=== PATIENT | female | born 1990 | race Hispanic/Latino ===

== ENCOUNTER 2021-04-18 08:21 | Emergency (ER) | payer OTHER ==
[2021-04-18] MEDS ORDERED: ACETAMINOPHEN 500 MG TAB ONE (09:23)
--- NOTE | 2021-04-18 10:26 | ER ---
Nurse's Notes [facility] Name: Laureen Castillo Age: 30 yrs Sex: Female : 1990 Arrival Date: 04/18/2021 Time: 08:23 Bed Waiting Private MD: Diagnosis: Coronavirus infection, unspecified Presentation: 04/18 08:53 Chief complaint: Patient states: fever, stuffed ears. Coronavirus screen: Client denies da3 travel out of the [place] in the last 14 days. Ebola Screen: No symptoms or risks identified at this time. Risk Assessment: Do you want to hurt yourself or someone else? Patient reports no desire to harm self or others. 08:53 Method Of Arrival: Ambulatory da3 08:53 Acuity: RORY 4 da3 Triage Assessment: 08:56 General: Appears comfortable, uncomfortable, Behavior is calm, cooperative. da3 Historical: - Allergies: 08:54 No Known Allergies; da3 - PMHx: 08:54 thyroid; da3 - PSHx: 08:56 back surgery; da3 - Immunization history:: Client reports having NOT received the Covid vaccine. Vital Signs: 08:55 BP 114 / 73; Pulse 96; Resp 20; Temp 100.3; Pulse Ox 100% on R/A; da3 ED Course: 08:23 Patient arrived in ED. as 08:54 Triage completed. da3 08:54 Lana Restrepo FNP-C is [facility]. kb 08:54 Yves Berrios MD is Attending Physician. kb Administered Medications: 09:03 Drug: Tylenol 1000 mg Route: PO; da3 Outcome: 10:25 Discharge ordered by . kb 10:55 Patient left the ED. kb Signatures: Lana Restrepo FNP-C FNP-Ckb Martinez, Amelia as Allan, David, RN RN da3
--- NOTE | 2021-04-18 10:26 | EDPHYS ---
Physician Documentation [facility] Name: Laureen Castillo Age: 30 yrs Sex: Female : 1990 Arrival Date: 04/18/2021 Time: 08:23 Bed Waiting Private MD: ED Physician Yves Berrios HPI: 04/18 16:23 This 30 yrs old Female presents to ER via Ambulatory with complaints of Ear kb Pain, Burn on Head, Fever. 16:24 The patient or guardian reports flu symptoms, low-grade fever, myalgias. Onset: The kb symptoms/episode began/occurred yesterday. Severity of symptoms: At their worst the symptoms were moderate, in the emergency department the symptoms are unchanged. Modifying factors: The symptoms are alleviated by nothing, the symptoms are aggravated by nothing. Associated signs and symptoms: Pertinent positives: fever, Pertinent negatives: chest pain, diarrhea, ear ache, nausea, rhinorrhea, sore throat, vomiting. The patient has not experienced similar symptoms in the past. The patient has not recently seen a physician. Patient reports headache, fever, stuffy ears since yesterday.. Historical: - Allergies: 08:54 No Known Allergies; da3 - PMHx: 08:54 thyroid; da3 - PSHx: 08:56 back surgery; da3 - Immunization history:: Client reports having NOT received the Covid vaccine. ROS: 16:24 Respiratory: Negative for shortness of breath, cough, wheezing, and pleuritic chest kb pain. 16:24 Constitutional: Positive for fever. 16:24 ENT: Positive for ear pain. 16:24 Neuro: Positive for headache. 16:24 All other systems are negative. Exam: 16:26 Constitutional: This is a well developed, well nourished patient who is awake, alert, kb and in no acute distress. Head/Face: Normocephalic, atraumatic. ENT: Moist Mucous membranes Cardiovascular: Regular rate and rhythm with a normal S1 and S2. No gallops, murmurs, or rubs. No pulse deficits. Respiratory: Respirations even and unlabored. No increased work of breathing, no retractions or nasal flaring. Abdomen/GI: Soft, non-tender. No distention Skin: Warm, dry with normal turgor. Normal color. MS/ Extremity: Pulses equal, no cyanosis. Neurovascular intact. Full, normal range of motion. Neuro: Awake and alert, GCS 15, oriented to person, place, time, and situation. Moves all extremities. Normal gait. Psych: Awake, alert, with orientation to person, place and time. Behavior, mood, and affect are within normal limits. Vital Signs: 08:55 BP 114 / 73; Pulse 96; Resp 20; Temp 100.3; Pulse Ox 100% on R/A; da3 MDM: 08:55 Patient medically screened. kb 16:23 Data reviewed: vital signs, nurses notes. Data interpreted: Pulse oximetry: on room air kb is 100 %. Interpretation: normal. Counseling: I had a detailed discussion with the patient and/or guardian regarding: the historical points, exam findings, and any diagnostic results supporting the discharge/admit diagnosis, lab results, the need for outpatient follow up, a family practitioner, to return to the emergency department if symptoms worsen or persist or if there are any questions or concerns that arise at home. 04/18 10:26 Order name: SARS-COV-2 RT PCR; Complete Time: 10:26 EDMS Administered Medications: 09:03 Drug: Tylenol 1000 mg Route: PO; da3 Disposition: 19:30 Co-signature as Attending Physician, Yves Berrios MD I agree with the assessment and kdr plan of care. Disposition Summary: 04/18/21 10:25 Discharge Ordered Location: Home kb Condition: Stable kb Diagnosis - Coronavirus infection, unspecified kb Followup: kb - With: Emergency Department - When: As needed - Reason: Worsening of condition Followup: kb - With: Private Physician - When: 2 - 3 days - Reason: Recheck today's complaints, Continuance of care, Re-evaluation by your physician Discharge Instructions: - Discharge Summary Sheet kb - Viral Respiratory Infection, [id number] kb - COVID-19 kb Forms: - Medication Reconciliation Form kb - Thank You Letter kb - Antibiotic Education kb - Prescription Opioid Use kb Signatures: Dispatcher [employer] EDMS Lana Restrepo, [employer] GRAHAM-Yves Méndez MD MD [facility] Robin Melendez, RN RN da3 Corrections: (The following items were deleted from the chart) 09:19 08:55 CORONAVIRUS+MR.LAB.BRZ ordered. EDMS EDMS
[2021-04-18 11:00] VITALS: BP 114/73; TEMP 100.3; O2SAT 100
== END 2021-04-18 10:55 | disposition home or self-care (01) ==
LOC: ER 08:21
DX: U07.1 COVID-19 (principal)
CPT/HCPCS: 99282; U0003